=== PATIENT | male | born 1940 | race Caucasian/White ===

== ENCOUNTER 2020-07-31 12:01 | Emergency (ER) | payer MEDICARE, BC ==
[~2020-07-31] VITALS: Ht 175.3 cm; Wt 146.7 kg
--- NOTE | 2020-07-31 12:12 | NUR ---
TO ED ROOM PER W/C
[2020-07-31] MEDS ORDERED: INSU300I SC (12:45)
[2020-07-31] MEDS ORDERED: CLOP75TA52 PO (12:45)
[2020-07-31] MEDS ORDERED: FENOFIBRIC ACID PO (12:45)
[2020-07-31] MEDS ORDERED: FOLI0.4T2 PO (12:45)
[2020-07-31] MEDS ORDERED: SEMA1PEN PO (12:45)
[2020-07-31] MEDS ORDERED: ALPH300C PO (12:45)
[2020-07-31] MEDS ORDERED: LOSA25TA25 PO (12:45)
[2020-07-31] MEDS ORDERED: TRAZ-175 PO (12:45)
[2020-07-31] MEDS ORDERED: magnesium PO (12:45)
[2020-07-31] MEDS ORDERED: METO-99 PO (12:45)
[2020-07-31] MEDS ORDERED: MULT-658 PO (12:45)
[2020-07-31] MEDS ORDERED: INSU100C SQ-INSULIN (12:45)
[2020-07-31] MEDS ORDERED: ASPI81TA45 PO (12:45)
[2020-07-31] MEDS ORDERED: METF500T17 PO (12:45)
[2020-07-31] MEDS ORDERED: AMLODIPINE BESYLATE PO (12:45)
[2020-07-31] MEDS ORDERED: ASCO100018 PO (12:45)
[2020-07-31] MEDS ORDERED: ATORVASTATIN PO (12:45)
[2020-07-31] MEDS ORDERED: OMEP-110 PO (12:45)
[2020-07-31] MEDS ORDERED: MORPHINE SULFATE 4 MG/ML, 1ML ONE (13:23)
[2020-07-31] MEDS ORDERED: DIAZEPAM 5 MG/ML, 2ML ONE (13:23)
[2020-07-31] MEDS ORDERED: MORPHINE SULFATE 4 MG/ML, 1ML IVPush PRN (13:30)
[2020-07-31] MEDS ORDERED: SODIUM CHLORIDE FLUSH 10ML SYR IVF ONE (13:30)
[2020-07-31] MEDS ORDERED: DIAZEPAM 5 MG/ML, 2ML IVPush ONE (13:30)
[2020-07-31 13:35] LABS: BASOPHILS # (AUTO) 0.02 x10^3/uL (0-0.1); BASOPHILS % (AUTO) 0 % (0-1); EOSINOPHILS # (AUTO) 0.23 x10^3/uL (0-0.4); EOSINOPHILS % (AUTO) 3 % (1-7); LYMPHOCYTES # (AUTO) 1.03 x10^3/uL (1-3.4); LYMPHOCYTES % (AUTO) 12 % (22-44); MD NO; MEAN CORPUSCULAR HEMOGLOBIN 30.9 pg (27.5-34.5); MEAN CORPUSCULAR HGB CONC 32.9 g/dL (33.2-36.2); MONOCYTES # (AUTO) 0.68 x10^3/uL (0.2-0.8); MONOCYTES % (AUTO) 8 % (2-9); NEUTROPHILS # (AUTO) 6.82 x10^3/uL (1.8-6.8); NEUTROPHILS % (AUTO) 78 % (42-75); PLATELET COUNT 222 x10^3/uL (130-400); RED BLOOD COUNT 4.56 x10^6/uL (4.38-5.82); RED CELL DISTRIBUTION WIDTH 15.4 % (9.4-14.8)
[2020-07-31 13:42] LABS: ALBUMIN 3.9 g/dL (3.4-5.0); ANION GAP 9 mmol/L (5-15); CALCIUM 9.4 mg/dL (8.5-10.1); CHLORIDE 104 mmol/L (98-107); CREATININE 1.57 mg/dL (0.7-1.3)
[2020-07-31 13:44] LABS: ALKALINE PHOSPHATASE 124 U/L (45-117); BILIRUBIN,TOTAL 0.4 mg/dL (0.2-1.0); TOTAL PROTEIN 7.2 g/dL (6.4-8.2)
[2020-07-31 13:54] LABS: ALANINE AMINOTRANSFERASE 51 U/L (12-78)
--- NOTE | 2020-07-31 14:10 | NUR ---
CHART UP FOR MD RECHECK.PT REPORTS PAIN IS BETTER AFTER MEDICATIONS.
[2020-07-31 14:41] VITALS: BP 181/80
== END 2020-07-31 14:44 | disposition home or self-care (01) ==
LOC: ED 12:56
DX: G89.29 Other chronic pain (principal); M54.5 Low back pain; I10 Essential (primary) hypertension; E11.9 Type 2 diabetes mellitus without complications; K21.9 Gastro-esophageal reflux disease without esophagitis; I25.2 Old myocardial infarction; E78.5 Hyperlipidemia, unspecified; Z87.891 Personal history of nicotine dependence
CPT/HCPCS: 36415; 80053; 85025; 96374; 96375; 99284; J2270; J3360

== ENCOUNTER 2020-08-13 08:18 | Outpatient (CLI) | payer MEDICARE, BC ==
[~2020-08-13 08:18] MED LIST: ALPH300C PO; AMLODIPINE BESYLATE PO; ASCO100018 PO; ASPI81TA45 PO; ATORVASTATIN PO; CLOP75TA52 PO; FENOFIBRIC ACID PO; FOLI0.4T2 PO; INSU100C SQ-INSULIN; INSU300I SC; LOSA25TA25 PO; METF500T17 PO; METO-99 PO; MULT-658 PO; OMEP-110 PO; REGADENOSON 0.4 MG/5 ML SYRINGE ONE; SEMA1PEN PO; TRAZ-175 PO; magnesium PO
== END 2020-08-14 23:59 | disposition home or self-care (01) ==
LOC: CFH 08:18
PROVIDERS: ATTEND Internal Medicine Cardiovascular Disease
DX: Z01.818 Encounter for other preprocedural examination (principal); I10 Essential (primary) hypertension; I25.10 Atherosclerotic heart disease of native coronary artery without angina pectoris; I25.9 Chronic ischemic heart disease, unspecified
CPT/HCPCS: 78452; 93017; A9502; J2785